=== PATIENT | male | born 1975 | race Caucasian/White ===

== ENCOUNTER 2024-10-07 09:51 | Emergency (ER) | payer OTHER, SELFPAY ==
--- OUTSIDE RECORDS SUMMARY | 2024-10-07 09:53 | XMS_ITS | Clinical Summary ---
Author Organization [facility] Address [address] [place] [id number] Care Team Providers Care Medical Record Specialist Name Role Phone Karson Stein MD Primary Care Provider [phone] Allergies No known active allergies Medications No known medications Family History Medical History Relation Comments COPD Father Diabetes Father Heart Disease Father Relation Status Comments Father Social History Tobacco Use Types Packs/Day Years Used Date Smoking Tobacco: Never Smokeless Tobacco: Never Alcohol Use Standard Drinks/Week Comments Yes 0 (1 standard drink = 0.6 oz pur e alcohol) social Sex and Gender Information Value Date Recorded Sex Assigned at Not on file Legal Sex Male 7:07 PM CDT Gender Identity Not on file Sexual Orientation Not on file Last Filed Vital Signs Vital Sign Reading Time Taken Comments Blood Pressure 132/74 12/11/2019 10:22 AM CDT Pulse 56 12/11/2019 8:17 AM CDT Temperature 36.9 C (98.4 F) 12/11/2019 8:17 AM CDT Respiratory Rate 18 12/11/2019 8:17 AM CDT Oxygen Saturation 99% 12/11/2019 10:22 AM CDT Inhaled Oxygen Concentration - - Weight 154.2 kg (340 lb) 12/11/2019 8:17 AM CDT Height 190.5 cm (6' 3 ) 12/11/2019 8:17 AM CDT Body Mass Index 42.5 12/11/2019 8:17 AM CDT Plan of Treatment Health Maintenance Due Date Last Done Comments Colorectal Cancer Screening Colonoscopy (10 Years) 1973 Annual Physical 1976 Hepatitis C 1991 DTaP, Tdap and Td Vaccines ( 1 - Tdap) 1992 Hepatitis B Vaccines (1 of 3 - 19+ 3-dose series) 1992 Zoster Vaccines (1 of 2) 2023 COVID-19 Vaccine (1 - 2023-2 5 season) 2024 Influenza Adult (#1) 2024 Meningococcal B Vaccine Aged Out No l onger eligible based on patient's age to complete this topic Meningococcal Vaccine Aged Out No nyasia christianne eligible based on patient's age to complete this topic Pneumococcal Vaccine: Pediat rics (0 to 5 Years) and At-Risk Patients (6 to 64 Years) Aged Out No longer eligible b ased on patient's age to complete this topic RSV Immunizations Under 20 Months Aged Out No longer eligible based on patient's age to complete this topic Insurance Care Teams Medical Record Specialist Relationship Specialty Start Date End Date Karson Stein MD [address] [place] [address] PCP - General FAMILY PRACTICE 12/11/19
--- OUTSIDE RECORDS SUMMARY | 2024-10-07 09:53 | XMS_ITS | Clinical Summary ---
Author Organization [facility] [address] Address [address] [place] [address] Care Team Providers Care Photo Intern Name Role Phone Darwin Stein MD Primary Care Provider [phone] Allergies No known active allergies Medications cyanocobalamin (Vitamin B-12) 100 mcg tabletIndication s:Prevention of Vitamin B12 Deficiency Take 1,000 mcg by mouth daily Active ascorbic acid (VITAMIN C) 500 mg tablet,chewable Acti ve magnesium gluconate 200 mg tabletIndication s:hypomagnesemia 250 mg Act gloria zinc 50 mg tablet Take by mouth Active Active Problems Problem Noted Date Diagnosed Date Mixed hyperlipidemia 08/20/2020 Morbid obesity with BMI of 45.0-49.9, adult (CMS /[facility]) 08/20/2020 Glucose intolerance 08/20/2020 Family history of ischemic heart disease 020 Medical History Medical History Date Comments Dyslipidemia Glucose intolerance Family History Medical History Relation Name Comments Arrhythmia Father Heart attack Father No Known Problems Mother Relation Name Status Comments Father Mother Social History Tobacco Use Types Packs/Day Years Used Date Smoking Tobacco: Never Smokeless Tobacco: Never Alcohol Use Standard Drinks/Week Comments Never 0 (1 standard drink = 0.6 oz pur e alcohol) AUDIT-C Answer Date Recorded Q1: How often do you have a drink containing alc ohol? 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 Oxygen Saturation 97% 12/23/2021 8:15 AM CDT Inhaled Oxygen Concentration - - Weight 157.8 kg (347 lb 14.4 oz) 12/23/2021 8:15 AM CDT Height 185.4 cm (6' 1 ) 12/23/2021 8:15 AM CDT Body Mass Index 45.9 12/23/2021 8:15 AM CDT Plan of Treatment Health Maintenance Due Date Last Done Comments Colon Cancer Screening-Colonoscopy 1973 Depression Screening 1973 Hepatitis C Screening 1973 Prostate Cancer Screening-PSA 1973 Hepatitis B Screening 1991 Regular Well Visit/Exam 18-64 1991 Zoster Vaccine (1 of 2) 2023 Influenza Vaccine (#1) 2024 DTaP/Tdap/Td Vaccine (2 - Td or Tdap) 11/30/2025 12/01/2015 Pneumococcal vaccine <65 Aged Out No longer eligible based on patient's age to complete this topic Insurance [employer] [id number] [address] [place] [id number] Care Teams Photo Intern Relationship Specialty Start Date End Date Darwin Stein MD [address] [place] [address] PCP - General Family Medicine 06/24/20
--- NOTE | 2024-10-07 09:54 | ED_ITS ---
HPI - URI/Sore Throat General Chief Complaint: Dental/Oral Stated Complaint: Sinus Time Seen by Provider: 10/07/24 09:54 Source: patient Mode of arrival: ambulatory Limitations: no limitations History of Present Illness HPI Narrative: Patient is a 49-year-old male who presents with left upper dental pain that started 3 days ago. Patient solid dentist 2 days ago and was told there was a white patch on roof of mouth and was given azithromycin. Was told there is no cavities or fractures of teeth. Patient reports pain is throbbing and radiates to head and ear. Patient has tried Mucinex with no relief. Patient has taken ibuprofen and Tylenol with moderate relief of pain but returns as soon as dose wears off patient has been on azithromycin for 3 days now with no improvement of symptoms. Denies any sore throat, feeling of throat closing or other oral swelling. Denies any fever, chills, nausea, vomiting, diarrhea. Related Data Allergies Allergy/AdvReac Type Severity Reaction Status Date / Time No Known Allergies Allergy Verified 10/07/24 10:55 Review of Systems 2 Review of Systems: All systems reviewed & are unremarkable except as noted in HPI and below Constitutional: Constitutional: Denies chills, Denies fatigue, Denies fever(s), Denies headache(s), Denies malaise and Denies weakness Eyes: Eyes: Denies blurry vision, Denies itchy eyes and Denies loss of vision ENT: Denies otalgia, Reports facial pain (dental ), Denies headache(s), Denies nasal congestion, Denies sinus pain and Denies sore throat Cardiovascular: Cardiovascular: Denies chest pain, Denies irregular heart rhythm and Denies dyspnea Respiratory: Respiratory: Denies cough and Denies dyspnea Gastrointestinal: Gastrointestinal: Denies abdominal pain, Denies diarrhea, Denies nausea and Denies vomiting Musculoskeletal: Musculoskeletal: Denies back pain, Denies myalgias and Denies arthralgias Integumentary/Breasts: Skin/Breast: Denies pruritus and Denies rash Neurologic: Denies headache(s), Denies loss of vision and Denies weakness Psychiatric: Psychiatric: Reports no additional psychiatric complaints Endocrine: Endocrine: Denies fatigue Allergic/Immunologic: Allergic/Immunologic: Denies itchy eyes PMFSH Past Medical History Medical History Poison jenny dermatitis Family History Family History Father Hypertension Acute myocardial infarction Social History Social History Smoking status: Never smoker Alcohol intake: current Comments At time of signature, agree with nursing past medical, surgical, social and family history. There is no relevant family history pertinent to the presenting complaint. Exam 2 Const: General: cooperative, healthy appearing, comfortable, no acute distress and well nourished Nutritional Appearance: well nourished O rientation/consciousness: patient oriented x3 Limitations: no limitations HENMT: Head: normal to inspection, normocephalic and atraumatic Ears: h earing grossly normal bilaterally, external ears normal, TM's normal bilaterally, EAC's normal and no periauricular adenopathy Face/Nose/Sinus: N ormal external nose present, Abnormal mucous membranes and turbinates present erythematous bilateral and diffuse, normal facial exam, sinuses nontender and face symmetric Face and sinus: normal facial exam, sinuses nontender and face symmetric Mouth: Yes Normal oral and palatal mucosa present, Yes lip normal, Yes tongue normal, Yes Normal salivary glands and ducts present, Yes oropharynx normal and Yes moist mucous membranes Teeth and gingiva: dentition normal Throat: tonsils normal, uvula midline, no peritonsillar masses and posterior oropharynx abnormal edema, erythema and exudates Throat image: 1. area of erythema, ttp, and swelling. White patch present on posterior side of area. no active bleeding or drainage. No fluctuation on palpation Eyes: General: appearance normal, both eyes and all related structures A lignment and Position: alignment normal and position normal Periorbital: p eriorbital findings normal Eyelids: eyelids normal Pupils: Equal, round and reactive pupils present Neck: Neck: normal visual inspection, full ROM, no lymphadenopathy and supple Chest: Chest palpation & inspection: normal inspection of the chest and normal palpation of entire chest wall Resp: Effort & Inspection: normal respiratory effort and able to speak in complete sentences Auscultation: clear to auscultation bilaterally, no crackles, no rales, no rhonchi and no wheezes Cardio: Rate: regular rate Rhythm: regular rhythm Heart sounds: S1 normal heart sound present and S2 normal heart sound present GI: Inspection: normal to inspection Skin: General skin exam: normal color and no rashes or lesions noted Neuro: General: patient oriented x3 and moves all extremities Cranial nerves: Yes Equal, round and reactive pupils present Speech: normal speech Gait exam (Neuro): Normal gait present Extrem: General: normal to inspection, full ROM and no edema Psych: Appearance: grossly normal and well kempt Mental Status: mental status grossly normal Speech and movement: Normal speech and movement present Affect: normal affect Attitude: cooperative Thought process: Normal thought process present Course Course Emergency Course: Discharge instructions reviewed with patient, as well as provided in writing per nursing staff. The instructions also include specific and strict return/GO TO THE ER as well as f/u information. All questions have been answered, and the patient deny any further questions with discharge and discharge plan. Portions of this record may have been created with voice recognition software Level of Care: Express Care Visit Vital Signs Vital signs: Vital Signs Temperature 36.6 C 10/07/24 10:30 Pulse Rate 74 10/07/24 10:30 Respiratory Rate 18 10/07/24 10:30 Blood Pressure 142/80 H 10/07/24 10:30 Pulse Oximetry 97 10/07/24 10:30 Oxygen Delivery Room Air 10/07/24 10:30 Temperature 36.6 C 10/07/24 10:30 Pulse Rate 74 10/07/24 10:30 Respiratory Rate 18 10/07/24 10:30 Blood Pressure 142/80 H 10/07/24 10:30 Pulse Oximetry 97 10/07/24 10:30 Oxygen Delivery Room Air 10/07/24 10:30 Reviewed MDM - URI/Sore Throat MDM Narrative Medical decision making narrative: Pt well hydrated appearing, in no respiratory distress, hemodynamically stable. Recommend supportive care. The patient is stable at time of discharge the clinical impression was discussed and the patient was given the opportunity to ask questions, which were addressed as completely as possible given the information available at present. Anticipatory guidance and return to care precautions were discussed and the importance of primary care follow-up was stressed and encouraged. The patient voiced understanding of the plan, indications to return, and the need for follow-up. Differential diagnosis considered: Larson virus, strep pharyngitis, allergic rhinitis, upper respiratory tract infection, sinusitis, rhinosinusitis, nasopharyngitis. viral pharyngitis, otitis media, otitis externa, otitis effusion, foreign body, cerumen impaction, viral syndrome, and influenza.? Exam findings show no acute concerns or changes; patient is non-toxic appearing and is in no distress.? Patient is appropriate for outpatient treatment and follow- up.? Differential Diagnosis Differential diagnosis: Likely other (oral yeast infection, dental abscess, other oral infection) Medical Records Attestation: I reviewed the patient's medical records. Discharge Plan Discharge Clinical Impression: Dental abscess, Candidiasis of mouth Patient Disposition: Home, Self-Care Condition: Stable Instructions: Dental Abscess (ED), Oral Candidiasis (ED) Additional Instructions: Take antibiotic until it's gone. Use nystatin oral rinse 4 times a day Brushing teeth at least twice daily with gentle flossing. Avoid temperature extremes---when you eat. Salt gargle to rinse your mouth after every meal You may apply ice to the face to reduce pain/swelling. For pain, you may take: Tylenol 650-1000mg by mouth every 4-6 hours. Do not exceed 4000mg in 24 hours. Advil (Ibuprofen) 600 mg by mouth every 6 hours. Do not exceed 2400mg in 24 hours. 8 AM: Tylenol 11 AM: Ibuprofen 2 PM: Tylenol 5 PM: Ibuprofen 8 PM: Tylenol 11 PM: Ibuprofen 2 AM: Tylenol 5 AM: Ibuprofen If you are having no improvement or worsening symptoms please go straight to the emergency department. Eva blood pressure was elevated above 120/80 today at Urgent Care. This puts you above the threshold for follow up visit with a primary care provider. High blood pressure does not usually cause any symptoms, however it may lead to kidney failure, stroke, heart disease just to name a few if untreated . Many people are anxious when seeing a provider or nurse. As a result, you are not diagnosed with hypertension at this time unless your blood pressure is persistently high at two office visits at least one week apart. Some things that can help lower blood pressure are lifestyle modifications, such as light exercise, decreased salt in diet, and weight loss. It is important to follow up with a PCP about this within 1 week. Patient Language: [place] Prescriptions: New amoxicillin-pot clavulanate 875-125 mg tablet 1 tablet PO Q12H 10 Days Qty: 20 0RF nystatin 100,000 unit/mL suspension 5 ml PO QID 10 Days Qty: 200 0RF Rx Instructions: Swish for several minutes and swallow Discontinued azithromycin 250 mg tablet Follow-up/Referrals: Dallas Christianson MD [Primary Care Provider] - 3 Days Time of Disposition: 11:13
--- OUTSIDE RECORDS SUMMARY | 2024-10-07 09:54 | XMS_ITS | Referral Summary ---
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 Gender Identity Not on file Sexual Orientation Not on file Last Filed Vital Signs Vital Sign Reading Time Taken Comments Blood Pressure 122/80 12/23/2021 8:15 AM CDT Pulse 77 12/23/2021 8:15 AM CDT Temperature - - Respiratory Rate 20 08/20/2020 9:02 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 Oxygen Saturation 97% 12/23/2021 8:15 AM CDT Inhaled Oxygen Concentration - - Weight 157.8 kg (347 lb 14.4 oz) 12/23/2021 8:15 AM CDT Height 185.4 cm (6' 1 ) 12/23/2021 8:15 AM CDT Body Mass Index 45.9 12/23/2021 8:15 AM CDT Plan of Treatment Not on file Insurance [facility] [facility]PPO Address: [place] [address] [employer] Address: [address] [address] [place] [phone] Care Teams Try Out Person Relationship Specialty Start Date End Date Darwin Stein MD [address] [place] [address] PCP - General Family Medicine 06/24/20
[2024-10-07 10:30] VITALS: BP 142/80; PULSE 74; RESP 18; TEMP 36.6; O2SAT 97
== END 2024-10-07 11:17 | disposition home or self-care (01) ==
PROVIDERS: Emergency Provider Nurse Practitioner Family; PCP Family Medicine
DX: K04.7 Periapical abscess without sinus (principal); B37.0 Candidal stomatitis
CPT/HCPCS: 99213; G0463

== ENCOUNTER 2025-02-07 14:15 | Emergency (ER) | payer OTHER, SELFPAY ==
[2025-02-07 14:19] VITALS: BP 149/76; PULSE 89; RESP 16; TEMP 37.3; O2SAT 100
--- NOTE | 2025-02-07 14:19 | ED_ITS ---
HPI - Dental/Oral General Chief complaint: Dental/Oral Stated complaint: Gum Infection Source: patient and RN notes reviewed Mode of arrival: ambulatory Limitations: no limitations History of Present Illness HPI Narrative: Patient is a 49-year-old male who presents to the [facility] with complaints of left upper dental pain for the past couple days. Patient states that he had similar pain back in September. His dentist had started him on azithromycin that his symptoms worsen. He was seen at the Urgent Care prescribed Augmentin at that time. He states that that improved his symptoms. He does wear a mouth guard at night believes that this it may be off. He does not have any dental caries or broken teeth. He does present with gingival swelling and erythema in the area of the pain. Denies trouble swallowing or trismus. Denies recent fever. Related Data Allergies Allergy/AdvReac Type Severity Reaction Status Date / Time No Known Allergies Allergy Verified 02/07/25 14:17 Review of Systems Review of Systems: CONSTITUTIONAL: Denies fever, chills, or sweats. EYES: Denies visual changes, redness, or discharge. ENT: Denies otalgia and sore throat. Reports dental pain. CARDIOVASCULAR: Denies chest pain, palpitations, or edema. RESPIRATORY: Denies cough or dyspnea. GASTROINTESTINAL: Denies abdominal pain, nausea, vomiting, or diarrhea. GENITOURINARY: Denies dysuria or hematuria. SKIN: Denies rash or itching. MUSCULOSKELETAL: Denies back pain, joint pain, or myalgia. NEUROLOGIC: Denies headache, numbness, or weakness. Pertinent positives per HPI. PMFSH Past Medical History Medical History Poison jenny dermatitis Family History Family History Father Hypertension Acute myocardial infarction Social History Social History Smoking status: Never smoker Alcohol intake: current Comments At the time of my signature, I reviewed and agree with the nursing past medical, surgical, social, and family history. There is no relevant family history pertinent to the patient complaint. Exam Narrative: GENERAL: This is a well-nourished, well-developed patient, in no apparent distress. HEAD: normocephalic, atraumatic. EYES: Sclera clear/white. Vision is grossly intact. EARS: External ears normal. Hearing grossly intact. NOSE: External nose normal with no obvious nasal discharge, nares without redness, no rhinorrhea. THROAT: Mucous membranes moist, posterior pharynx clear. MOUTH: Gingival tenderness, swelling, and erythema. No dental caries. No abscess. NECK: Neck supple, non-tender without lymphadenopathy, masses or thyromegaly. CARDIOVASCULAR: Regular rate and rhythm without murmurs, gallops, or rubs. RESPIRATORY: Clear to auscultation. Breath sounds equal bilaterally. No wheezes, rales, or rhonchi. GASTROINTESTINAL: Abdomen soft, non-tender, nondistended. Bowel sounds are active. No hepato-splenomegaly, or palpable masses. No guarding. SKIN: warm, intact with no suspicious lesions or rash, good texture and turgor. NEURO: awake, alert, and oriented to person, place and time. There were no obvious focal neurologic abnormalities. Course Course Level of Care: Express Care Visit Vital Signs Vital signs: Vital Signs Temperature 99.2 F 02/07/25 14:19 Pulse Rate 89 02/07/25 14:19 Respiratory Rate 16 02/07/25 14:19 Blood Pressure 149/76 H 02/07/25 14:19 Pulse Oximetry 100 02/07/25 14:19 Oxygen Delivery Room Air 02/07/25 14:19 Temperature 99.2 F 02/07/25 14:19 Pulse Rate 89 02/07/25 14:19 Respiratory Rate 16 02/07/25 14:19 Blood Pressure 149/76 H 02/07/25 14:19 Pulse Oximetry 100 02/07/25 14:19 Oxygen Delivery Room Air 02/07/25 14:19 Reviewed MDM - Dental/Oral MDM Narrative Medical decision making narrative: Take antibiotic until it's gone. Brushing teeth at least twice daily with gentle flossing. Avoid temperature extremes when you eat. Salt gargle to rinse your mouth after every meal You may apply ice to the face to reduce pain/swelling. For pain, you may take: Tylenol 650-1000mg by mouth every 4-6 hours. Do not exceed 4000mg in 24 hours. Advil (Ibuprofen) 600 mg by mouth every 6 hours. Do not exceed 2400mg in 24 hours. Also, recommend regular dental check up one-two times a year to prevent tooth decay and other periodontal disease. Follow-up with the dentist as soon as possible. See the list provided Differential Diagnosis Differential diagnosis: Likely gingival abscess, dental caries and dental abscess Critical Care Time Critical Care Time Critical Care Time: No Discharge Plan Discharge Clinical Impression: Dental infection Patient Disposition: Home Condition: Stable Instructions: Antibiotic Form, Dental Abscess (ED) Additional Instructions: Take antibiotic until it's gone. Brushing teeth at least twice daily with gentle flossing. Avoid temperature extremes when you eat. Salt gargle to rinse your mouth after every meal You may apply ice to the face to reduce pain/swelling. For pain, you may take: Tylenol 650-1000mg by mouth every 4-6 hours. Do not exceed 4000mg in 24 hours. Advil (Ibuprofen) 600 mg by mouth every 6 hours. Do not exceed 2400mg in 24 hours. Also, recommend regular dental check up one-two times a year to prevent tooth decay and other periodontal disease. Follow-up with the dentist as soon as possible. See the list provided Patient Language: Syriac Prescriptions: New clindamycin HCl [Cleocin HCl] 300 mg capsule 300 mg PO Q8H 10 Days Qty: 30 0RF Magic Mouthwash (Dr. Weldon) 120 mL suspension 5 ml PO PRN Qty: 120 0RF Rx Instructions: diphenhydramine 12.5 mg/5 mL oral elixir 40 mL; Lidocaine Viscous 2 % mucosal solution 40 mL; Maalox 200 mg-200 mg-20 mg/5 mL oral suspension 40 mL; Per 120 mL Follow-up/Referrals: PHYSICIAN,[employer] [Primary Care Provider] - Stand Alone Forms: Work/School Release IP Time of Disposition: 14:31
== END 2025-02-07 14:34 | disposition home or self-care (01) ==
PROVIDERS: Emergency Provider Nurse Practitioner
DX: K04.7 Periapical abscess without sinus (principal)
CPT/HCPCS: 99213; G0463

== ENCOUNTER 2025-02-08 09:50 | Outpatient (CLI) | payer OTHER, SELFPAY ==
--- NOTE | 2025-02-21 14:41 | WPDHOMESLEEP ---
Sleep Study - Home Unattended Date of Study: 02/08/25 Ordering Provider: Dallas Christianson MD Interpreting Provider: Ambreen Oconnor DO Home Sleep Study Type: Watch PAT Height: 1.91 m Weight: 152.407 kg Body Mass Index: 42.0 Neck Circumference (inches): 18 [place]: 2 Reason for Sleep Study Trouble falling and staying asleep Sleep History The patient is a 49-year-old male that had a sleep study ordered by his primary care physician for evaluation of sleep apnea. The patient admits to having trouble falling and staying asleep. He denies snoring loudly. He denies interruptions in breathing while asleep. He denies choking or gasping at night. He denies having trouble breathing on his back. He denies morning headaches. He denies having a dry or sore mouth / throat in the morning. He denies nocturnal heartburn. He denies nocturia. He denies having difficulty returning to sleep if he wakes up throughout the night. He denies any hypnotic or sedative use. He denies feeling anxious about sleep. He does feel tired or sleepy during the day. He does feel tired in the morning. He denies having the urge to fall asleep during the day. He denies feeling drowsy while driving. He denies sleep paralysis, cataplexy and hypnagogic/ hypnopompic hallucinations. He does clench or grind his teeth. He denies kicking or jerking his legs excessively. He denies having a restless feeling in his legs. He goes to bed at 11:00 p.m. every night. It takes him 30 minutes to fall asleep on work days and 15 minutes on his days off. He gets 6.5 hours of sleep every night. His sleep is much more restorative on his days off. He denies taking any planned naps. He denies dream enactment behavior. He denies sleep walking. He consumes more than 5 caffeinated beverages per day. He denies tobacco use. He consumes 1 alcoholic beverage 1-2 nights per week. He exercises 1-2 nights per week. [facility] Past Medical History Medical History Poison jenny dermatitis Family History Family History Father Hypertension Acute myocardial infarction Social History Social History Smoking status: Never smoker Alcohol intake: current Medications Home Medications ?Medication ?Instructions ?Recorded ?Confirmed ?Type Magic Mouthwash (Dr. Weldon) 120 5 ml PO PRN #120 mL 02/07/25 Rx mL suspension clindamycin HCl 300 mg capsule 300 mg PO Q8H 10 days #30 caps 02/07/25 Rx (Cleocin HCl) Sleep Procedure The sleep study was completed using [employer] a technically adequate device with seven channels: peripheral arterial tone, actigraphy, body position, snore, respiratory movement, pulse oximetry, sleep staging, and heart rate. Prior to using the device, the patient received verbal and written instructions for its application and was provided with the help desk phone number for additional telephonic instruction with 24-hour availability of qualified personnel to answer questions. The study was scored using CMS guidelines. Sleep Architecture The total recording time is 8 hrs, 57 min. The total sleep time is 8 hrs, 22 min. Sleep latency is 19 minutes. REM latency is 64 minutes. The patient had 4 episodes of waking. Sleep architecture shows 20.8% deep sleep, 43.6% light sleep, and (as % Total Sleep Time) showed NREM (Light 43.6%; Deep 20.8%), and a 35.6% stage REM. The patient spent 52.2% of total sleep time in the supine position. Sleep efficiency was 93.48. Respiratory Analysis The overall AHI (pAHI 4%:) is 1.8. The overall AHI (pAHI 3%:) is 7.5. The central AHI is 0.1. The AHI was 3.3 in NREM and 14.8 in REM sleep. The AHI was 5.2 in Supine and 10.1 in Non-supine sleep. Percent of [place] respirations is 0.0. Oximetry Data The oxygen desaturation index (WIL 4%:) is 1.4. The mean saturation is 93%, and the lowest saturation is 89%. Time spent with saturation < 88% is 0.0 minutes. Snoring Profile Snoring average intensity is 43 dB. The patient snored above 45 decibels for 97.1 minutes, 19.3% of sleep time. Cardiac Profile The average pulse rate is 69 beats per minutes. The lowest pulse rate is 47 bpm. The highest pulse rate reported is 97 bpm. Atrial fibrillation was not detected. Premature beats occur 1.2 per minute. Assessment and Plan Assessment and Plan (1) DENA (obstructive sleep apnea): Code(s): G47.33 - Obstructive sleep apnea (adult) (pediatric) Status: Acute Assessment and Plan: Per AASM guidelines (pAHI 3%), the patient had an overall AHI of 7.5 with desaturation down to 89%. This is consistent with mild sleep apnea. Due to the patient's insomnia, he qualifies for treatment. I recommend that the patient be prescribed AutoPAP 5-15 cm H2O, CPAP mask/filters/tubing and heated humidity. A mandibular advancement device is also an acceptable treatment option. This should be used with all episodes of sleep.? Compliance should be reviewed within 31-90 days of starting therapy for usage greater than 4 hours per night greater than 70% of the nights. The patient should be asked about symptoms such as?excessive daytime sleepiness, quality of sleep, decreased nocturia, increased?mental functioning such as memory, mood, and concentration. Per CMS guidelines (pAHI 4%), the patient had an overall AHI of 1.8 with desaturation down to 89%. This is not consistent with sleep-disordered breathing. The patient would need to have a split study or repeat a home study at a later date to see if he would qualify for treatment. The patient's insurance company will dictate whether they recognize the 3% or 4% criteria. Data The data obtained during this sleep study is adequate for interpretation. Certification This sleep study has been reviewed by a board certified sleep medicine physician.
[2025-02-21 14:42] VITALS: BMI 42.0
== END 2025-02-09 10:13 | disposition home or self-care (01) ==
LOC: ANHCSM 10:00
PROVIDERS: Visit Provider Family Medicine
DX: G47.9 Sleep disorder, unspecified (principal); G47.10 Hypersomnia, unspecified
CPT/HCPCS: 95800